=== PATIENT | male | born 1990 | race Caucasian/White ===

== ENCOUNTER 2022-09-08 16:37 | Inpatient (IN) | payer MEDICAID, OTHER ==
[~2022-09-08] VITALS: Ht 172.7 cm; Wt 78.0 kg
[2022-09-08 16:45] VITALS: BP 113/73
[2022-09-08] MEDS ORDERED: ONDANSETRON HCL 4MG TABLET PO PRN (17:30)
[2022-09-08 20:00] VITALS: BP 118/72
[2022-09-08] MEDS ORDERED: NALOXONE HCL 0.4MG/ML VIAL IV PRN (20:30)
[2022-09-08] MEDS: PANTOPRAZOLE 40MG DR TABLET PO SCH (20:31)
[2022-09-08] MEDS: HYDROCODONE/ACETAMINOPHEN 7.5/325MG TABLET PO PRN (20:34)
[2022-09-09 05:54] LABS: EOSINOPHILS % 2.7 % (0.0-5.0); HEMATOCRIT. 24.3 % (42.0-52.0); HEMOGLOBIN. 8.5 g/dL (14.0-18.0); LYMPHOCYTES % 25.5 % (20.0-50.0); MEAN CORPUSCULAR HEMOGLOBIN 32.6 pg (28.0-32.0); MEAN PLATELET VOLUME 6.2 fl (7.4-10.4); MONOCYTES % 9.6 % (2.0-8.0); NEUTROPHILS % 61.2 % (40.0-76.0); PLATELET 728 x1000/uL (130-400); RED BLOOD CELL COUNT 2.61 mill/uL (4.7-6.1); RED CELL DISTRIBUTION WIDTH 16.4 % (11.6-14.6)
[2022-09-09 06:17] LABS: CHLORIDE 100 mEq/L (98-107)
[2022-09-09 08:00] VITALS: BP 106/79
[2022-09-09] MEDS: PANTOPRAZOLE 40MG DR TABLET PO SCH ×2 (08:26→21:01)
[2022-09-09] MEDS: SODIUM CHLORIDE 1000MG TABLET PO SCH ×3 (08:26→17:37)
[2022-09-09] MEDS: METHOCARBAMOL 500MG TABLET PO SCH ×3 (08:27→17:37)
[2022-09-09] MEDS: SENNOSIDES/DOCUSATE SOD 8.6/50MG TABLET PO SCH ×2 (08:27→17:37)
[2022-09-09] MEDS: TAMSULOSIN HCL 0.4MG SR CAPSULE PO SCH (08:29)
[2022-09-09] MEDS: HYDROCODONE/ACETAMINOPHEN 7.5/325MG TABLET PO PRN ×2 (08:39→17:38)
[2022-09-09] MEDS: BACITRACIN 15GM TUBE TOP SCH ×2 (09:00→17:00)
[2022-09-09 14:10] LABS: CLARITY URINE CLEAR (CLEAR); COLOR URINE YELLOW (YELLOW); KETONES URINE NEGATIVE (NEGATIVE); LEUKOCYTE ESTERASE URINE NEGATIVE (NEGATIVE); NITRITE URINE NEGATIVE (NEGATIVE); OCCULT BLOOD URINE 1+ (NEGATIVE); PH URINE 6.5 (4.5-8.0); PROTEIN URINE NEGATIVE (NEGATIVE); SPECIFIC GRAVITY URINE 1.016 (1.005-1.030); UROBILINOGEN URINE 0.2 E.U./dL (0.2-1.0)
[2022-09-09 20:00] VITALS: BP 115/76
[2022-09-09] MEDS: PHENAZOPYRIDINE HCL 100MG TABLET PO PRN (22:34)
[2022-09-10] MEDS: HYDROCODONE/ACETAMINOPHEN 7.5/325MG TABLET PO PRN ×3 (07:40→23:18)
[2022-09-10] MEDS: PANTOPRAZOLE 40MG DR TABLET PO SCH ×2 (07:40→23:12)
[2022-09-10] MEDS: METHOCARBAMOL 500MG TABLET PO SCH ×3 (07:48→16:43)
[2022-09-10] MEDS: SODIUM CHLORIDE 1000MG TABLET PO SCH ×3 (07:48→16:43)
[2022-09-10] MEDS: SENNOSIDES/DOCUSATE SOD 8.6/50MG TABLET PO SCH ×2 (07:48→16:43)
[2022-09-10] MEDS: TAMSULOSIN HCL 0.4MG SR CAPSULE PO SCH (07:49)
[2022-09-10 07:58] VITALS: BP 125/83
[2022-09-10] MEDS: BACITRACIN 15GM TUBE TOP SCH ×2 (09:00→16:44)
[2022-09-10] MEDS: PHENAZOPYRIDINE HCL 100MG TABLET PO PRN (12:27)
[2022-09-10 19:56] VITALS: BP 105/69
[2022-09-11] MEDS: HYDROCODONE/ACETAMINOPHEN 7.5/325MG TABLET PO PRN ×2 (07:06→12:45)
[2022-09-11] MEDS: PANTOPRAZOLE 40MG DR TABLET PO SCH ×2 (07:10→21:06)
[2022-09-11] MEDS: SENNOSIDES/DOCUSATE SOD 8.6/50MG TABLET PO SCH ×2 (07:44→16:19)
[2022-09-11] MEDS: METHOCARBAMOL 500MG TABLET PO SCH ×3 (07:44→16:19)
[2022-09-11] MEDS: SODIUM CHLORIDE 1000MG TABLET PO SCH ×3 (07:44→16:19)
[2022-09-11] MEDS: TAMSULOSIN HCL 0.4MG SR CAPSULE PO SCH (07:44)
[2022-09-11 08:00] VITALS: BP 117/67
[2022-09-11] MEDS: BACITRACIN 15GM TUBE TOP SCH ×2 (09:00→16:22)
[2022-09-11] MEDS: ENOXAPARIN 40MG/0.4ML SYR SUBCUT SCH (12:38)
[2022-09-11] MEDS: PHENAZOPYRIDINE HCL 100MG TABLET PO PRN (16:19)
[2022-09-11 20:00] VITALS: BP 103/68
[2022-09-12 08:00] VITALS: BP 124/88
[2022-09-12] MEDS: BACITRACIN 15GM TUBE TOP SCH ×2 (09:00→17:00)
[2022-09-12] MEDS: SENNOSIDES/DOCUSATE SOD 8.6/50MG TABLET PO SCH ×2 (09:23→18:08)
[2022-09-12] MEDS: METHOCARBAMOL 500MG TABLET PO SCH ×3 (09:23→18:08)
[2022-09-12] MEDS: SODIUM CHLORIDE 1000MG TABLET PO SCH ×3 (09:23→18:09)
[2022-09-12] MEDS: PANTOPRAZOLE 40MG DR TABLET PO SCH ×2 (09:23→21:04)
[2022-09-12] MEDS: TAMSULOSIN HCL 0.4MG SR CAPSULE PO SCH (09:24)
[2022-09-12] MEDS: HYDROCODONE/ACETAMINOPHEN 7.5/325MG TABLET PO PRN ×4 (09:31→22:48)
[2022-09-12] MEDS: ENOXAPARIN 40MG/0.4ML SYR SUBCUT SCH (13:56)
[2022-09-12] MEDS: ACETAMINOPHEN 325MG TABLET PO PRN (13:56)
[2022-09-12 16:23] LABS: CLARITY URINE CLEAR (CLEAR); COLOR URINE DARK YELLOW (YELLOW); KETONES URINE NEGATIVE (NEGATIVE); LEUKOCYTE ESTERASE URINE 1+ (NEGATIVE); NITRITE URINE NEGATIVE (NEGATIVE); OCCULT BLOOD URINE 3+ (NEGATIVE); PROTEIN URINE TRACE (NEGATIVE); SPECIFIC GRAVITY URINE 1.017 (1.005-1.030); UROBILINOGEN URINE 0.2 E.U./dL (0.2-1.0)
[2022-09-12 20:00] VITALS: BP 108/64
[2022-09-13] MEDS: HYDROCODONE/ACETAMINOPHEN 7.5/325MG TABLET PO PRN ×3 (05:48→17:43)
[2022-09-13 08:00] VITALS: BP 111/58
[2022-09-13] MEDS: PANTOPRAZOLE 40MG DR TABLET PO SCH ×2 (08:00→21:05)
[2022-09-13] MEDS: SODIUM CHLORIDE 1000MG TABLET PO SCH ×3 (09:00→17:43)
[2022-09-13] MEDS: TAMSULOSIN HCL 0.4MG SR CAPSULE PO SCH (09:00)
[2022-09-13] MEDS: SENNOSIDES/DOCUSATE SOD 8.6/50MG TABLET PO SCH ×2 (09:00→17:43)
[2022-09-13] MEDS: BACITRACIN 15GM TUBE TOP SCH ×2 (09:00→17:00)
[2022-09-13] MEDS: METHOCARBAMOL 500MG TABLET PO SCH ×3 (09:00→17:43)
[2022-09-13] MEDS: ACETAMINOPHEN 325MG TABLET PO PRN (09:37)
[2022-09-13] MEDS: ENOXAPARIN 40MG/0.4ML SYR SUBCUT SCH (13:11)
[2022-09-13 20:00] VITALS: BP 118/62
[2022-09-14] MEDS: HYDROCODONE/ACETAMINOPHEN 7.5/325MG TABLET PO PRN ×4 (00:33→18:42)
[2022-09-14 07:56] VITALS: BP 102/70
[2022-09-14] MEDS: METHOCARBAMOL 500MG TABLET PO SCH ×3 (08:16→17:38)
[2022-09-14] MEDS: PANTOPRAZOLE 40MG DR TABLET PO SCH ×2 (08:16→21:16)
[2022-09-14] MEDS: SODIUM CHLORIDE 1000MG TABLET PO SCH ×3 (08:16→17:38)
[2022-09-14] MEDS: TAMSULOSIN HCL 0.4MG SR CAPSULE PO SCH (08:17)
[2022-09-14] MEDS: BACITRACIN 15GM TUBE TOP SCH ×2 (08:17→17:00)
[2022-09-14] MEDS: SENNOSIDES/DOCUSATE SOD 8.6/50MG TABLET PO SCH ×2 (08:17→17:38)
[2022-09-14] MEDS: ENOXAPARIN 40MG/0.4ML SYR SUBCUT SCH (12:25)
[2022-09-14 20:00] VITALS: BP 107/64
[2022-09-15 06:52] LABS: BASOPHILS % 0.9 % (0.0-2.0); EOSINOPHILS % 4.6 % (0.0-5.0); HEMATOCRIT. 29.6 % (42.0-52.0); LYMPHOCYTES % 21.6 % (20.0-50.0); MEAN CORPUSCULAR HEMOGLOBIN 31.1 pg (28.0-32.0); MEAN CORPUSCULAR VOLUME 91.8 fL (80.0-94.0); MEAN PLATELET VOLUME 6.1 fl (7.4-10.4); MONOCYTES % 6.5 % (2.0-8.0); NEUTROPHILS % 66.4 % (40.0-76.0); PLATELET 442 x1000/uL (130-400); RED BLOOD CELL COUNT 3.22 mill/uL (4.7-6.1); RED CELL DISTRIBUTION WIDTH 16.2 % (11.6-14.6)
[2022-09-15 07:09] LABS: CHLORIDE 103 mEq/L (98-107)
[2022-09-15 08:00] VITALS: BP 118/58
[2022-09-15] MEDS: TAMSULOSIN HCL 0.4MG SR CAPSULE PO SCH (08:20)
[2022-09-15] MEDS: PANTOPRAZOLE 40MG DR TABLET PO SCH ×2 (08:20→20:43)
[2022-09-15] MEDS: SODIUM CHLORIDE 1000MG TABLET PO SCH ×3 (08:20→16:21)
[2022-09-15] MEDS: METHOCARBAMOL 500MG TABLET PO SCH ×3 (08:21→16:21)
[2022-09-15] MEDS: SENNOSIDES/DOCUSATE SOD 8.6/50MG TABLET PO SCH ×2 (08:21→16:21)
[2022-09-15] MEDS: BACITRACIN 15GM TUBE TOP SCH ×2 (09:00→16:23)
[2022-09-15] MEDS: ENOXAPARIN 40MG/0.4ML SYR SUBCUT SCH (12:41)
[2022-09-15 16:53] VITALS: BP 127/38
[2022-09-15 20:00] VITALS: BP 113/66
[2022-09-15] MEDS: HYDROCODONE/ACETAMINOPHEN 7.5/325MG TABLET PO PRN (20:45)
[2022-09-16] MEDS: HYDROCODONE/ACETAMINOPHEN 7.5/325MG TABLET PO PRN ×2 (03:10→20:36)
[2022-09-16 08:00] VITALS: BP 104/65
[2022-09-16] MEDS: SODIUM CHLORIDE 1000MG TABLET PO SCH ×3 (08:15→16:54)
[2022-09-16] MEDS: SENNOSIDES/DOCUSATE SOD 8.6/50MG TABLET PO SCH ×2 (08:15→16:54)
[2022-09-16] MEDS: PANTOPRAZOLE 40MG DR TABLET PO SCH ×2 (08:15→20:22)
[2022-09-16] MEDS: METHOCARBAMOL 500MG TABLET PO SCH ×3 (08:15→17:34)
[2022-09-16] MEDS: TAMSULOSIN HCL 0.4MG SR CAPSULE PO SCH (08:16)
[2022-09-16] MEDS: BACITRACIN 15GM TUBE TOP SCH ×2 (08:16→16:54)
[2022-09-16] MEDS: ENOXAPARIN 40MG/0.4ML SYR SUBCUT SCH (12:15)
[2022-09-16 20:00] VITALS: BP 104/69
[2022-09-17 07:56] VITALS: BP 107/71
[2022-09-17] MEDS: BACITRACIN 15GM TUBE TOP SCH ×2 (11:04→17:00)
[2022-09-17] MEDS: SODIUM CHLORIDE 1000MG TABLET PO SCH ×3 (11:04→18:52)
[2022-09-17] MEDS: PANTOPRAZOLE 40MG DR TABLET PO SCH ×2 (11:05→20:34)
[2022-09-17] MEDS: TAMSULOSIN HCL 0.4MG SR CAPSULE PO SCH (11:05)
[2022-09-17] MEDS: HYDROCODONE/ACETAMINOPHEN 7.5/325MG TABLET PO PRN ×2 (11:06→19:34)
[2022-09-17] MEDS: SENNOSIDES/DOCUSATE SOD 8.6/50MG TABLET PO SCH ×2 (11:06→18:53)
[2022-09-17] MEDS: METHOCARBAMOL 500MG TABLET PO SCH ×3 (11:07→18:53)
[2022-09-17] MEDS: ENOXAPARIN 40MG/0.4ML SYR SUBCUT SCH (15:52)
[2022-09-17 19:38] VITALS: BP 111/80
[2022-09-18] MEDS: HYDROCODONE/ACETAMINOPHEN 7.5/325MG TABLET PO PRN ×2 (07:32→17:27)
[2022-09-18] MEDS: SODIUM CHLORIDE 1000MG TABLET PO SCH (07:53)
[2022-09-18] MEDS: TAMSULOSIN HCL 0.4MG SR CAPSULE PO SCH (07:54)
[2022-09-18] MEDS: METHOCARBAMOL 500MG TABLET PO SCH ×3 (07:54→17:23)
[2022-09-18] MEDS: SENNOSIDES/DOCUSATE SOD 8.6/50MG TABLET PO SCH ×2 (07:54→17:23)
[2022-09-18] MEDS: PANTOPRAZOLE 40MG DR TABLET PO SCH ×2 (07:54→20:49)
[2022-09-18 08:00] VITALS: BP 124/64
[2022-09-18] MEDS: BACITRACIN 15GM TUBE TOP SCH ×2 (09:00→17:28)
[2022-09-18] MEDS: ENOXAPARIN 40MG/0.4ML SYR SUBCUT SCH (11:42)
[2022-09-18] MEDS: ACETAMINOPHEN 325MG TABLET PO PRN (11:42)
[2022-09-18 20:00] VITALS: BP 105/68
[2022-09-19 06:59] LABS: CHLORIDE 102 mEq/L (98-107)
[2022-09-19 07:54] VITALS: BP 106/67
[2022-09-19] MEDS: PANTOPRAZOLE 40MG DR TABLET PO SCH ×2 (08:33→21:01)
[2022-09-19] MEDS: METHOCARBAMOL 500MG TABLET PO SCH ×3 (08:33→17:39)
[2022-09-19] MEDS: SENNOSIDES/DOCUSATE SOD 8.6/50MG TABLET PO SCH ×2 (08:33→17:39)
[2022-09-19] MEDS: HYDROCODONE/ACETAMINOPHEN 7.5/325MG TABLET PO PRN ×2 (08:33→23:56)
[2022-09-19] MEDS: BACITRACIN 15GM TUBE TOP SCH ×2 (09:00→17:00)
[2022-09-19] MEDS: ENOXAPARIN 40MG/0.4ML SYR SUBCUT SCH (14:18)
[2022-09-19 20:00] VITALS: BP_SYST 100; BP_SYST 135; BP_DIAS 56; BP_DIAS 67
[2022-09-19] MEDS: TAMSULOSIN HCL 0.4MG SR CAPSULE PO SCH (21:01)
[2022-09-20 08:00] VITALS: BP 102/64
[2022-09-20] MEDS: SENNOSIDES/DOCUSATE SOD 8.6/50MG TABLET PO SCH ×2 (08:55→17:30)
[2022-09-20] MEDS: METHOCARBAMOL 500MG TABLET PO SCH ×3 (08:55→17:30)
[2022-09-20] MEDS: PANTOPRAZOLE 40MG DR TABLET PO SCH ×2 (08:55→21:09)
[2022-09-20] MEDS: BACITRACIN 15GM TUBE TOP SCH ×2 (09:00→17:00)
[2022-09-20] MEDS: HYDROCODONE/ACETAMINOPHEN 7.5/325MG TABLET PO PRN (10:55)
[2022-09-20] MEDS: ENOXAPARIN 40MG/0.4ML SYR SUBCUT SCH (14:06)
[2022-09-20] MEDS: ACETAMINOPHEN 325MG TABLET PO PRN (14:39)
[2022-09-20 20:05] VITALS: BP 179/94
[2022-09-20] MEDS: TAMSULOSIN HCL 0.4MG SR CAPSULE PO SCH (21:09)
[2022-09-21] MEDS: HYDROCODONE/ACETAMINOPHEN 7.5/325MG TABLET PO PRN ×2 (06:59→17:04)
[2022-09-21 08:00] VITALS: BP 114/77
[2022-09-21] MEDS: BACITRACIN 15GM TUBE TOP SCH ×2 (09:00→17:00)
[2022-09-21] MEDS: PANTOPRAZOLE 40MG DR TABLET PO SCH ×2 (09:47→20:36)
[2022-09-21] MEDS: METHOCARBAMOL 500MG TABLET PO SCH ×3 (09:47→17:04)
[2022-09-21] MEDS: SENNOSIDES/DOCUSATE SOD 8.6/50MG TABLET PO SCH ×2 (09:47→17:04)
[2022-09-21] MEDS: ENOXAPARIN 40MG/0.4ML SYR SUBCUT SCH (12:28)
[2022-09-21 20:00] VITALS: BP 114/74
[2022-09-21] MEDS: TAMSULOSIN HCL 0.4MG SR CAPSULE PO SCH (20:37)
[2022-09-22 08:27] VITALS: BP 105/71
[2022-09-22] MEDS: SENNOSIDES/DOCUSATE SOD 8.6/50MG TABLET PO SCH (08:50)
[2022-09-22] MEDS: METHOCARBAMOL 500MG TABLET PO SCH (08:50)
[2022-09-22] MEDS: PANTOPRAZOLE 40MG DR TABLET PO SCH (08:50)
[2022-09-22] MEDS: BACITRACIN 15GM TUBE TOP SCH (08:50)
[2022-09-22 09:14] VITALS: BP 105/71
[2022-09-22] MEDS ORDERED: METH-773 PO (09:20)
[2022-09-22] MEDS ORDERED: TAMS-11 PO (09:20)
== END 2022-09-22 12:00 | disposition home health service (06) | DRG 347 ==
PROVIDERS: ADMIT Psychiatry & Neurology Neurology; ATTEND Hospitalist
DX: S32.10XA Unspecified fracture of sacrum, initial encounter for closed fracture (principal); M62.82 Rhabdomyolysis; D69.6 Thrombocytopenia, unspecified; E44.1 Mild protein-calorie malnutrition; N17.9 Acute kidney failure, unspecified; E87.1 Hypo-osmolality and hyponatremia; E83.39 Other disorders of phosphorus metabolism; S32.059A Unspecified fracture of fifth lumbar vertebra, initial encounter for closed fracture; R33.9 Retention of urine, unspecified; R74.01 Elevation of levels of liver transaminase levels; D50.0 Iron deficiency anemia secondary to blood loss (chronic); S52.201B Unspecified fracture of shaft of right ulna, initial encounter for open fracture type I or II; Z93.3 Colostomy status; V29.99XA Rider (driver) (passenger) of other motorcycle injured in unspecified traffic accident, initial encounter; Y93.89 Activity, other specified; Y92.89 Other specified places as the place of occurrence of the external cause; Y99.8 Other external cause status; Z68.26 Body mass index [BMI] 26.0-26.9, adult
CPT/HCPCS: 36415; 80053; 81003; 85025; 92523; 93970; 97110; 97116; 97163; 97166; 97530; 97535; J1650; A4315